=== PATIENT | female | born 1955 | race American Indian/Alaskan Native ===

== ENCOUNTER → 2019-11-24 10:23 | Outpatient (CLI) | payer BC, SELFPAY ==
--- NOTE | ~2019-11-24 | DEXA_ITS ---
Bone Density Report Name: Michelle Sevilla Age: 64 Sex: Female Ethnicity: White Date of : 1955 Indication: postmenopausal; screening for osteoporosis; prior fracture; Referring Provider: KAZ RONQUILLO Study: Bone densitometry was performed. Exam Date: November 24, 2019 Accession number: [id number] Bone Density: Region BMD T-score Z-score Classification AP Spine (L1-L4) 1.095 0.4 2.1 Normal Femoral Neck (Left) 0.779 -0.6 0.8 Normal Total Hip (Left) 0.946 0.0 1.2 Normal Femoral Neck (Right) 0.756 -0.8 0.6 Normal Total Hip (Right) 0.923 -0.2 1.0 Normal Total Hip Mean 0.935 -0.1 1.1 Normal World Health Organization criteria for BMD impression classify patients as: Normal (T-score at or above -1.0), Osteopenia (T-score between -1.0 and -2.5), or Osteoporosis (T-score at or below -2.5). 10-year Fracture Risk: FRAX not reported because: All T-scores for Spine Total, Hip Total, Femoral Neck at or above -1.0 Previous Exams: Region Exam Age BMD T-score BMD Change BMD Change Date g/cm2 vs Baseline vs Previous AP Spine(L1-L4) 11/24/2019 64 1.095 0.4 0.041* 0.041* 03/20/2017 62 1.054 0.1 Total Hip(Left) 11/24/2019 64 0.946 0.0 0.006 0.006 03/20/2017 62 0.939 0.0 Total Hip(Right) 11/24/2019 64 0.923 -0.2 0.000 0.000 03/20/2017 62 0.923 -0.2 *Denotes significance at 95% confidence level, LSC for AP Spine = 0.022 g/cm2, LSC for Total Hip = 0.027 g/cm2 Clinical Information Provided by Patient: Has had a low trauma fracture Has used the following medications: Vitamin D, Calcium Patient maximum height was 65 Menopause Age: 51 Drinks caffeinated beverages Onset of menses at age 15 Number of children 1 Impression: The patient has normal bone mass. The patient has risk factors, including: previous fracture. No significant bone loss was observed. Discussion: BONE DENSITY IS ABOVE THE MINIMUM DESIRABLE LEVEL AT ALL SKELETAL SITES TESTED. This patient?s bone mineral density is above the minimum desirable level (T-score -1.0 or better) at all sites measured. The patient should follow a healthful lifestyle (good nutrition with adequate calcium and vitamin D, and appropriate weight-bearing exercise). Follow-Up: Consider repeating this study in 5 years or sooner if there is some new clinical indication. Reported by: KEVIN on 11/24/2019 10:47:00 AM.
== END ==
PROVIDERS: PCP Nurse Practitioner Family; Visit Provider Obstetrics & Gynecology Gynecology
DX: Z78.0 Asymptomatic menopausal state (principal)
CPT/HCPCS: 77080

== ENCOUNTER 2021-02-06 12:40 | Outpatient (CLI) | payer MEDICARE, BC, SELFPAY ==
--- NOTE | ~2021-02-06 | US_ITS ---
EXAMINATION: US carotid duplex BI DATE: 02/06/2021 13:22 INDICATION: Bilateral carotid artery stenosis TECHNIQUE: Grayscale, color Doppler, and pulsed Doppler images of the cervical carotid arteries were obtained. The degree of vessel stenosis is placed in one of the following categories: normal, <50%, 5 0-69%, >=70% but less than near-occlusion, near-occlusion, or total occlusion. Note that percent sten osis relative to normal distal artery lumen diameter is indirectly measured from velocity measurement s as described by Guzman, et al. Radiology 2003; 229:340-346. COMPARISON: 01/12/2019 FINDINGS: RIGHT: The right common carotid artery (CCA) peak systolic velocity (PSV) is 69 cm/s. The right internal car otid artery (ICA) PSV is 104 cm/s. The right ICA end-diastolic velocity (EDV) is 40 cm/s. The right I CA/CCA PSV ratio is 1.5. Grayscale and color Doppler images yield an estimate of <50% diameter reduct ion from plaque in the ICA. The external carotid artery (ECA) PSV is 75 cm/s. There is antegrade flow in the right vertebral artery. LEFT: The left CCA PSV is 63 cm/s. The left ICA PSV is 90 cm/s. The left ICA EDV is 33 cm/s. The left ICA/C CA PSV ratio is 1.4. Grayscale and color Doppler images yield an estimate of <50% diameter reduction from plaque in the ICA. The ECA PSV is 55 cm/s. There is antegrade flow in the left vertebral artery. IMPRESSION: 1. <50% stenosis in the right internal carotid artery. 2. <50% stenosis in the left internal carotid artery. Reviewed, dictated and finalized at location B.
== END 2021-02-06 12:41 | disposition home or self-care (01) ==
PROVIDERS: PCP Nurse Practitioner Family; Visit Provider Surgery Vascular Surgery
DX: I65.23 Occlusion and stenosis of bilateral carotid arteries (principal)
CPT/HCPCS: 93880

== ENCOUNTER 2021-03-27 15:33 | Emergency (ER) | payer MEDICARE, BC, SELFPAY ==
[2021-03-27] VITALS (16 sets, daily range): BP systolic 130–153; BP diastolic 79–88; PULSE 57–86; RESP 10–19; TEMP 36.3; O2SAT 99–100
--- NOTE | ~2021-03-27 | XR_ITS ---
EXAMINATION: XR chest 2V DATE: 03/27/2021 15:55 INDICATION: Generalized chest pain. TECHNIQUE: Frontal and lateral views of the chest were obtained. COMPARISON: None. FINDINGS: The chest demonstrates clear lungs without pneumonia, pleural effusion, or pneumothorax. Th e heart size is normal. IMPRESSION: 1. No acute cardiopulmonary disease. Reviewed, dictated and finalized at location B. [facility]
--- NOTE | 2021-03-27 15:35 | ECG_ITS ---
Measurements Intervals [place] Rate: 69 P: 76 ME: 137 QRS: 65 QRSD: 86 T: 35 QT: 365 QTc: 393 Interpretive Statements SINUS RHYTHM POSSIBLE LEFT ATRIAL ENLARGEMENT BORDERLINE ST ABNORMALITY- ANTEROLAT/INF LEADS BASELINE ARTIFACT- I, III, AVR, AVL, AVF BORDERLINE ECG Electronically Signed On 03-27-2021 17:05:13 [employer]ING PRESS OPERATOR by Marcio Miramontes D.O.
[2021-03-27 16:08] LABS: Basophils Percent Auto 0.3 % (0.2-1.2); Eosinophils Percent Auto 0.4 % (0-4.4); Hematocrit 45.1 % (37.0-47.0); Hemoglobin 14.8 g/dL (12.0-15.0); Immature Granulocyte Absolute 0.02 K/mm3 (0.00-0.031); Immature Granulocyte Percent A 0.2 % (0-0.5); Lymphocytes Absolute Auto 2.17 K/mm3 (0.9-3.2); Lymphocytes Percent Auto 23.9 % (18.3-44.2); Mean Corpuscular HGB Conc 32.8 g/dl (32-36); Mean Corpuscular Hemoglobin 30.3 pg (26-34); Mean Corpuscular Volume 92.4 fl (80-100); Mean Platelet Volume 9.9 fl (7.4-10.4); Monocytes Absolute Auto 0.6 K/mm3 (0.1-0.6); Monocytes Percent Auto 6.7 % (2.6-8.5); Neutrophils Absolute Auto 6.2 K/mm3 (1.3-6.7); Neutrophils Percent Auto 68.5 % (45.5-73.1); Platelet Count Result 295 k/mm3 (150-375); Red Blood Count 4.88 M/mm3 (4.2-5.4); Red Cell Distribution Width 12.9 % (11.5-14.5); White Blood Count 9.1 K/mm3 (4.5-10.0)
[2021-03-27 16:17] LABS: INR 0.9; Prothrombin Time 12.5 Seconds (11.1-14.7)
[2021-03-27 16:18] LABS: Partial Thromboplastin Time 27.7 SECONDS (22.3-36.8)
--- NOTE | 2021-03-27 16:22 | ED.CHESTPAIN ---
HPI - Chest Pain General Chief Complaint: Chest Pain Stated Complaint: chest pain Time Seen by Provider: 03/27/21 16:07 Source: patient Mode of arrival: ambulatory Limitations: no limitations History of Present Illness HPI narrative: 66-year-old female past medical history of high cholesterol no family history of cardiac disease complaining of epigastric pain radiating to the substernal area after drinking a adrian latte prior to arrival. Pain lasted approximately 30 minutes. Worse with deep breath, improved with burping. No fever, no cough, no shortness of breath, no leg swelling, no new medications. No previous history of same. Related Data Home Medications Medication Instructions Recorded Confirmed citalopram mg 03/27/21 rosuvastatin mg 03/27/21 Allergies Allergy/AdvReac Type Severity Reaction Status Date / Time No Known Allergies Allergy Verified 03/27/21 16:11 Review of Systems Review of Systems: CONSTITUTIONAL: no fever, no weight loss, no confusion EYES: no vision changes, no eye pain ENT: no rhinorrhea, no sore throat, no difficulty swallowing CARDIOVASCULAR: postive for chest pain, no leg edema, no palpitations RESPIRATORY: no cough, no shortness of breath, no hemoptysis GASTROINTESTINAL: no abdominal pain, no nausea, no vomiting, no diarrhea GENITOURINARY: no flank pain, no dysuria, no hematuria SKIN: no rash, no jaundice MUSCULOSKELETAL: no back pain, no trauma. NEUROLOGIC: No headache, no dizziness, no focal weakness PSYCHIATRIC: No hallucinations, no suicidal ideation COUNT INCLUDES THE [facility] Family History Family History Grandparent Diabetes mellitus Family history of malignant neoplasm of bone Mother Hypertension Father Hypertension Other Family history of arthritis Family history of cardiovascular disease Social History Social History Smoking status: Never smoker Alcohol intake: current Exam Narrative: General: alert, afebrile, answering all questions appropriately Head: normocephalic, atraumatic Eyes: EOMI bilaterally, anicteric, no injection ENT: moist mucous membranes, oropharynx patent, no rhinorrhea Neck: supple, trachea midline, no JVD Chest: equal chest rise bilaterally, no chest wall trauma noted Lungs: clear to auscultation bilaterally, respirations unlabored CV: regular rate, no MATTHIEU B, calf size equal bilaterally Abd: soft, non-distended, non-tender, no rebound, no gaurding EXT: no deformity noted, moving all extremities equally Skin: warm, dry, no pallor Neuro: alert, oriented x 3; CN 2-12 grossly intact, no dysarthria Psych: affect appropriate, though content normal Course Course Emergency Course: Patient pain-free in the ED, had epigastric pain on exam chest x-ray normal, EKG normal, troponin negative x2 remained chest pain-free with no history of CAD. Patient has follow-up with primary doctor tomorrow and will return if any concern including chest pain breath leg swelling fever. Patient considered safe for discharge Vital Signs Vital signs: Vital Signs Temperature 36.3 C L 03/27/21 15:38 Pulse Rate 86 03/27/21 15:38 Respiratory Rate 18 03/27/21 15:38 Blood Pressure 153/85 H 03/27/21 15:38 Pulse Oximetry 99 03/27/21 15:38 Temperature 36.3 C L 03/27/21 15:38 Pulse Rate 59 L 03/27/21 19:00 Respiratory Rate 14 03/27/21 19:00 Blood Pressure 140/81 03/27/21 19:00 Pulse Oximetry 100 03/27/21 19:00 MDM - Chest Pain Differential Diagnosis Differential diagnosis: Likely pneumothorax, stable angina, unstable angina pectoris, atypical chest pain, st elevation myocardial infarction, biliary colic and other (Vascular catastrophe, pleural effusion, diverticulitis, gastritis, gas, GERD) Medical Records Data Attestation: I reviewed the patient's medical records. Lab Data Attestation: I reviewed the patient's lab results. Result diagrams:
[2021-03-27] MEDS: NITROGLYCERIN OINTMENT 1 INCH DOSE TRANSDERM (16:28)
[2021-03-27] MEDS: FAMOTIDINE 20 MG/2 ML VIAL IV PUSH (16:28)
--- NOTE | 2021-03-27 16:28 | PC.NURSE ---
#20 gauge IV placed to RAC. Pepcid 20 mg IVP and Nitropaste 1 placed to mid chest. Unable to document at this time due to computer malfunction.
[2021-03-27 16:30] LABS: Alanine Aminotransferase 24 U/L (4-35); Albumin Level 4.8 g/dL (3.5-5.1); Alkaline Phosphatase 65 U/L (38-126); Anion Gap 6 mmol/L (8-16); Aspartate Amino Transferase 36 U/L (14-36); Bilirubin,Total 0.4 mg/dL (0.2-1.3); Blood Urea Nitrogen 16 mg/dL (7-17); Calcium 9.9 mg/dL (8.4-10.2); Carbon Dioxide 30 mmol/L (22-30); Chloride 100 mmol/L (98-107); Estimated CRCL calculation 53 ml/min; Estimated Glomerular Filt Rate > 60; Glucose 130 mg/dL (65-110); Lipase 63 U/L (23-300); Sodium 136 mmol/L (137-145)
--- NOTE | 2021-03-27 16:38 | PC.NURSE ---
Called lab to add on MG
[2021-03-27 16:43] LABS: Troponin I < 0.012 ng/mL (0.000-0.034)
[2021-03-27 16:51] LABS: Magnesium 1.6 mg/dL (1.6-2.3)
--- NOTE | 2021-03-27 18:58 | PC.NURSE ---
Denies any further pain. Wanting to go home.
--- NOTE | 2021-03-27 19:00 | PC.NURSE ---
Assuming care of pt.
[2021-03-27 20:10] LABS: Troponin I < 0.012 ng/mL (0.000-0.034)
== END 2021-03-27 20:47 | disposition home or self-care (01) ==
PROVIDERS: Emergency Medicine; Emergency Provider Emergency Medicine; PCP Nurse Practitioner Family
DX: R07.9 Chest pain, unspecified (principal)
CPT/HCPCS: 36415; 71046; 80053; 83690; 83735; 84484; 85025; 85610; 85730; 93005; 96374; 99284; A9270

== ENCOUNTER 2021-03-29 16:09 | Emergency (ER) | payer MEDICARE, BC, SELFPAY ==
[2021-03-29 16:20] VITALS: BP 137/76; PULSE 73; RESP 16; TEMP 36.6; O2SAT 100
--- NOTE | 2021-03-29 16:23 | ED.FEMALEGU ---
HPI - Female Genitourinary General Chief complaint: Urogenital-Female Stated complaint: UTI Source: patient and RN notes reviewed Mode of arrival: ambulatory History of Present Illness HPI Narrative: This is a 66-year-old female who presented to urgent care with complaints of foul-smelling urine and lower back pain x2 days. Patient notes that she self caths herself and has had a history of UTIs she notes that she did not have any hematuria, frequency urgency, dysuria or incontinence. Patient did notes that she has been exercising for the last couple days and her pain could possibly be due to her exercising. Patient UA was negative for urinary tract infection and her CVA was negative. Related Data Home Medications Medication Instructions Recorded Confirmed citalopram 20 mg PO DAILY 03/27/21 03/29/21 rosuvastatin 10 mg PO DAILY 03/27/21 03/29/21 Allergies Allergy/AdvReac Type Severity Reaction Status Date / Time No Known Allergies Allergy Verified 03/29/21 16:13 Review of Systems Review of Systems: A 14 organ system Review of Systems was performed and pertinent positives included in the HPI, otherwise remaining ROS is negative. [facility] Family History Family History Grandparent Diabetes mellitus Family history of malignant neoplasm of bone Mother Hypertension Father Hypertension Other Family history of arthritis Family history of cardiovascular disease Social History Social History Smoking status: Never smoker Alcohol intake: current Exam Narrative: GENERAL: This is a well-nourished, well-developed patient, in no apparent distress. HEAD: normocephalic, atraumatic. EYES: PERRL. Sclera clear/white. Vision is grossly intact. EARS: External ears normal, auditory canals clear and without drainage, TMs normal without perforation. Hearing grossly intact. NOSE: External nose normal with no obvious nasal discharge, nares without redness, no rhinorrhea. THROAT: Mucous membranes moist, posterior pharynx clear. NECK: Neck supple, non-tender without lymphadenopathy, masses or thyromegaly. CARDIOVASCULAR: Regular rate and rhythm without murmurs, gallops, or rubs. RESPIRATORY: Clear to auscultation. Breath sounds equal bilaterally. No wheezes, rales, or rhonchi. GASTROINTESTINAL: Abdomen soft, non-tender, nondistended. Bowel sounds are active. No hepato-splenomegaly, or palpable masses. No guarding. CVA negative SKIN: warm, intact with no suspicious lesions or rash, good texture and turgor. NEURO: awake, alert, and oriented to person, place and time. There were no obvious focal neurologic abnormalities. Steady gait EXTREMITIES: Normal range of motion. No edema. No calf tenderness. Negative Homans sign bilaterally. BACK: Nontender without deformity or crepitance. No flank tenderness. Course Course Emergency Course: Patient will discharge home and use [id number] medication for pain she will also use heat or ice to relieve her lower back pain. Vital Signs Vital signs: Vital Signs Temperature 97.8 F 03/29/21 16:20 Pulse Rate 73 03/29/21 16:20 Respiratory Rate 16 03/29/21 16:20 Blood Pressure 137/76 03/29/21 16:20 Pulse Oximetry 100 03/29/21 16:20 Temperature 97.8 F 03/29/21 16:20 Pulse Rate 73 03/29/21 16:20 Respiratory Rate 16 03/29/21 16:20 Blood Pressure 137/76 03/29/21 16:20 Pulse Oximetry 100 03/29/21 16:20 MDM - Female Genitourinary Differential Diagnosis Differential diagnosis: Likely urinary tract infection, vaginitis and other (Muscle strain or sprain) Lab Data Labs: Urine Glucose Negative Reference Range: Negative Urine Bilirubin Negative Reference Range: Negative Urine Ketone Negative
== END 2021-03-29 16:40 | disposition home or self-care (01) ==
PROVIDERS: Emergency Provider Nurse Practitioner; PCP Nurse Practitioner Family
DX: T14.8XXA Other injury of unspecified body region, initial encounter (principal); X58.XXXA Exposure to other specified factors, initial encounter
CPT/HCPCS: 81003; 99212; G0463

== ENCOUNTER 2023-02-28 16:33 | Outpatient (CLI) | payer MEDICARE, BC, SELFPAY ==
--- NOTE | ~2023-02-28 | US_ITS ---
EXAMINATION: US carotid duplex BI DATE: 02/28/2023 17:54 INDICATION: Carotid stenosis, bilateral. TECHNIQUE: Grayscale, color Doppler, and pulsed Doppler images of the cervical carotid arteries were obtained. The degree of vessel stenosis is placed in one of the following categories: normal, <50%, 5 0-69%, >=70% but less than near-occlusion, near-occlusion, or total occlusion. Note that percent sten osis relative to normal distal artery lumen diameter is indirectly measured from velocity measurement s as described by Guzman, et al. Radiology 2003; 229:340-346. COMPARISON: Ultrasound 02/06/2021 FINDINGS: RIGHT: The right common carotid artery (CCA) peak systolic velocity (PSV) is 78 cm/s. The right internal car otid artery (ICA) PSV is 80 cm/s. The right ICA end-diastolic velocity (EDV) is 30 cm/s. The right IC A/CCA PSV ratio is 1.0. Grayscale and color Doppler images yield an estimate of <50% diameter reducti on from plaque in the ICA. There is antegrade flow in the right vertebral artery. LEFT: The left CCA PSV is 67 cm/s. The left ICA PSV is 71 cm/s. The left ICA EDV is 26 cm/s. The left ICA/C CA PSV ratio is 1.1. Grayscale and color Doppler images yield an estimate of <50% diameter reduction from plaque in the ICA. There is antegrade flow in the left vertebral artery. IMPRESSION: 1. <50% stenosis in the right internal carotid artery. 2. <50% stenosis in the left internal carotid artery. Reviewed, dictated and finalized at location E.
== END 2023-02-28 16:34 | disposition home or self-care (01) ==
LOC: ANHIMG 16:34
PROVIDERS: PCP Nurse Practitioner; Visit Provider Surgery Vascular Surgery
DX: I65.23 Occlusion and stenosis of bilateral carotid arteries (principal)
CPT/HCPCS: 93880

== ENCOUNTER 2023-10-07 08:20 | Outpatient (CLI) | payer MEDICARE, BC, SELFPAY ==
[2023-10-07 12:51] LABS: Basophils Percent Auto 0.8 % (0.2-1.2); Eosinophils Absolute Auto 0.2 K/mm3 (0-0.3); Eosinophils Percent Auto 2.8 % (0-4.4); Hematocrit 44.6 % (37.0-47.0); Immature Granulocyte Absolute 0.01 K/mm3 (0.00-0.031); Immature Granulocyte Percent A 0.2 % (0-0.5); Lymphocytes Percent Auto 28.4 % (18.3-44.2); Mean Corpuscular HGB Conc 31.4 g/dl (32-36); Mean Corpuscular Hemoglobin 29.9 pg (26-34); Mean Corpuscular Volume 95.3 fl (80-100); Mean Platelet Volume 10.4 fl (7.4-10.4); Monocytes Absolute Auto 0.5 K/mm3 (0.1-0.6); Monocytes Percent Auto 9.7 % (2.6-8.5); Neutrophils Absolute Auto 3.1 K/mm3 (1.3-6.7); Neutrophils Percent Auto 58.1 % (45.5-73.1); Platelet Count Result 275 k/mm3 (150-375); Red Blood Count 4.68 M/mm3 (4.2-5.4); Red Cell Distribution Width 13.3 % (11.5-14.5); White Blood Count 5.3 K/mm3 (4.5-10.0)
[2023-10-07 13:25] LABS: Alanine Aminotransferase 30 U/L (6-35); Alkaline Phosphatase 51 U/L (38-126); Anion Gap 3 mmol/L (4-12); Aspartate Amino Transferase 80 U/L (14-36); Bilirubin,Total 0.6 mg/dL (0.2-1.3); Blood Urea Nitrogen 15 mg/dL (7-17); Calcium 8.8 mg/dL (8.4-10.2); Carbon Dioxide 28 mmol/L (22-30); Chloride 105 mmol/L (98-107); Cholesterol 170 mg/dL (0-200); Estimated Glomerular Filt Rate > 60; Glucose 89 mg/dL (65-110); HDL Direct 76 mg/dL; Potassium 4.6 mmol/L (3.4-5.0); Sodium 136 mmol/L (137-145); Triglycerides 71 mg/dL (<150)
[2023-10-07 13:36] LABS: LDL Cholesterol Direct 71 mg/dL
[2023-10-07 14:05] LABS: Vitamin D 25 Hydroxy 53.4 ng/mL
== END 2023-10-07 08:21 | disposition home or self-care (01) ==
PROVIDERS: PCP Internal Medicine; Visit Provider Nurse Practitioner
DX: E78.2 Mixed hyperlipidemia (principal); E55.9 Vitamin D deficiency, unspecified; Z13.29 Encounter for screening for other suspected endocrine disorder
CPT/HCPCS: 36415; 80053; 80061; 82306; 85025

== ENCOUNTER 2024-02-09 08:45 | Emergency (ER) | payer MEDICARE, BC, SELFPAY ==
[2024-02-09 09:07] VITALS: BP 108/74; PULSE 77; RESP 16; TEMP 36.1; O2SAT 98
--- NOTE | 2024-02-09 09:19 | ED.GENADULT ---
HPI - General Adult General Chief complaint: Upper Respiratory Infection Stated complaint: HEAD CONGESTION/SORE THROAT/COUGH Source: patient Mode of arrival: ambulatory Limitations: no limitations History of Present Illness HPI narrative: Pt presents for evaluation of sick symptoms. Symptoms include sinus congestion, postnasal drainage, sore throat and cough. No fever, chills, nausea, vomiting or diarrhea. No sick contacts prior to the time of symptom onset. However her is now becoming symptomatic. She has been taking cepacol lozenges and tylenol cold and sinus for her symptoms. She does not smoke. Related Data Home Medications Medication Instructions Recorded Confirmed ascorbic acid (vitamin C) 1,000 mg 1 g PO DAILY 12/08/21 02/09/24 capsule calcium carbonate (Calcium 600) 600 mg PO BID 12/08/21 02/09/24 estradiol 0.01% (0.1 mg/gram) 1 g vaginal 2XW 12/08/21 02/09/24 vaginal cream (Estrace) msgvhqvd-wsy-F. coag-B. 1 tablet PO DAILY 12/08/21 02/09/24 subtilis-inulin 1 billion cell-1 gram chew tab (Culturelle Probiotic-Multivit) multivitamin 1 tablet PO DAILY 12/08/21 02/09/24 Allergies Allergy/AdvReac Type Severity Reaction Status Date / Time amoxicillin Allergy Rash Verified 02/09/24 08:59 Review of Systems Review of Systems: CONSTITUTIONAL: Denies fever, chills, or sweats. EYES: Denies visual changes, redness, or discharge. ENT: Reports sinus congestion postnasal drainage, sore throat. Denies otalgia. CARDIOVASCULAR: Denies chest pain, palpitations, or edema. RESPIRATORY: Reports cough. Denies dyspnea. GASTROINTESTINAL: Denies abdominal pain, nausea, vomiting, or diarrhea. GENITOURINARY: Denies dysuria or hematuria. SKIN: Denies rash or itching. MUSCULOSKELETAL: Denies back pain, joint pain, or myalgia. NEUROLOGIC: Denies headache, numbness, dizziness, or weakness. PSYCHIATRIC: Denies anxiety or depression. [facility] Past Medical History Medical History (Updated 02/09/24 @ 09:22 by Trip Vizcarra, ASSISTANT IMPORT MANAGER, BC) Anxiety Dysuria Hyperlipidemia Urinary retention Surgical History Surgical History History of bladder surgery Family History Family History Grandparent Diabetes mellitus Family history of malignant neoplasm of bone Mother Hypertension Cerebrovascular accident Family history of cardiovascular disease Father Hypertension Heart disease Sibling Asthma Sibling Thyroid disorder Other Family history of arthritis Social History Social History Smoking status: Never smoker Alcohol intake: current Drinks per week: 5 Substance use: never Substance use type: does not use Lack of Transportation: No Lack of Food: Never True Current Housing: I Have Housing Concerned About Future Housing: No Difficulty Paying Gas/Electric Bills: No Difficulty Paying for Meds: No Currently Unemployed: No Education: High School Diploma/GED Difficulty w/ Childcare or Family Care: No Living arrangements: with family Additional living arrangements comments: Occupation/Education: retired Gender identity (if verbalized by the patient): Female Sexual Orientation (if Verbalized by the Patient): Straight or Heterosexual Spiritual care concerns: No Agree to blood products: Yes Course Course Emergency Course: This is a 69-year-old female who presented for evaluation of sick symptoms. COVID and influenza were both negative. Exam is consistent with acute viral syndrome. Increase hydration. Xnab-ypq-xttnnbv agents for symptom management. Follow up with primary provider. Go to the ER for worsening symptoms. Patient in agreement with plan of care Level of Care: Express Care Visit Vital Signs Vital signs: Vital Signs Temperature 36.1 C L 02/09/24 09:07 Pulse Rate
[2024-02-09 09:23] LABS: EDCOVIDSCREEN Negative (Negative); EDINFLUASCREEN Negative (Negative); EDINFLUBSCREEN Negative (Negative)
== END 2024-02-09 09:27 | disposition home or self-care (01) ==
PROVIDERS: Emergency Provider Nurse Practitioner; PCP Nurse Practitioner
DX: J06.9 Acute upper respiratory infection, unspecified (principal); Z20.822 Contact with and (suspected) exposure to COVID-19; E78.5 Hyperlipidemia, unspecified
CPT/HCPCS: 87426; 87804; 99213; G0463

== ENCOUNTER 2024-02-10 09:27 | Outpatient (CLI) | payer MEDICARE, BC, SELFPAY ==
--- NOTE | ~2024-02-10 | US_ITS ---
EXAMINATION: US carotid duplex BI DATE: 02/10/2024 10:25 INDICATION: Carotid stenosis, bilateral. TECHNIQUE: Grayscale, color Doppler, and pulsed Doppler images of the cervical carotid arteries were obtained. The degree of vessel stenosis is placed in one of the following categories: normal, <50%, 5 0-69%, >=70% but less than near-occlusion, near-occlusion, or total occlusion. Note that percent sten osis relative to normal distal artery lumen diameter is indirectly measured from velocity measurement s as described by Guzman, et al. Radiology 2003; 229:340-346. COMPARISON: Ultrasound 02/28/2023 FINDINGS: RIGHT: The right common carotid artery (CCA) peak systolic velocity (PSV) is 100 cm/s. The right internal ca rotid artery (ICA) PSV is 136 cm/s. The right ICA end-diastolic velocity (EDV) is 55 cm/s. The right ICA/CCA PSV ratio is 1.4. Grayscale and color Doppler images yield an estimate of <50% diameter reduc tion from plaque in the ICA. There is antegrade flow in the right vertebral artery. LEFT: The left CCA PSV is 94 cm/s. The left ICA PSV is 119 cm/s. The left ICA EDV is 56 cm/s. The left ICA/ CCA PSV ratio is 1.3. Grayscale and color Doppler images yield an estimate of <50% diameter reduction from plaque in the ICA. There is antegrade flow in the left vertebral artery. IMPRESSION: 1. <50% stenosis in the right internal carotid artery. 2. <50% stenosis in the left internal carotid artery. Reviewed, dictated and finalized at location A.
== END 2024-02-10 09:28 | disposition home or self-care (01) ==
PROVIDERS: PCP Nurse Practitioner; Visit Provider Surgery Vascular Surgery
DX: I65.23 Occlusion and stenosis of bilateral carotid arteries (principal)
CPT/HCPCS: 93880

== ENCOUNTER 2024-08-25 11:30 | Outpatient (CLI) | payer MEDICARE, BC, SELFPAY ==
--- NOTE | ~2024-08-25 | DEXA_ITS ---
Bone Density Report Name: SWETHA WOO Age: 69 Sex: Female Ethnicity: White Date of : 1955 Indication: postmenopausal; screening for osteoporosis; parental hip fracture; Referring Provider: Dewey, Sherry Study: Bone densitometry was performed. Exam Date: August 25, 2024 Accession number: [id number] Bone Density: Region BMD T-score Z-score Classification AP Spine(L2, L3, L4) 1.195 1.1 3.1 Normal Femoral Neck (Left) 0.737 -1.0 0.7 Normal Total Hip (Left) 1.019 0.6 2.0 Normal Femoral Neck (Right) 0.779 -0.6 1.1 Normal Total Hip (Right) 1.000 0.5 1.9 Normal Femoral Neck Mean 0.758 -0.8 0.9 Normal Total Hip Mean 1.009 0.5 2.0 Normal World Health Organization criteria for BMD impression classify patients as: Normal (T-score at or above -1.0), Osteopenia (T-score between -1.0 and -2.5), or Osteoporosis (T-score at or below -2.5). 10-year Fracture Risk: FRAX not reported because: All T-scores for Spine Total, Hip Total, Femoral Neck at or above -1.0 Clinical Information Provided by Patient: Parent has had a hip fracture Patient maximum height was 64.5 Menopause Age: 51 Drinks caffeinated beverages Onset of menses at age 14 Number of children 1 Impression: The patient has normal bone mass. The patient has risk factors, including: parental hip fracture. Discussion: BONE DENSITY IS ABOVE THE MINIMUM DESIRABLE LEVEL AT ALL SKELETAL SITES TESTED. This patient?s bone mineral density is above the minimum desirable level (T-score -1.0 or better) at all sites measured. The patient should follow a healthful lifestyle (good nutrition with adequate calcium and vitamin D, and appropriate weight-bearing exercise). Follow-Up: Consider repeating this study in 5 years or sooner if there is some new clinical indication. Reported by: DAVID on 08/25/2024 11:57:00 AM. Reviewed, dictated and finalized at location A.
--- OUTSIDE RECORDS SUMMARY | 2024-08-25 13:29 | XMS_ITS | Referral Summary ---
Author Organization [facility] Address [facility] [place] [address] Care Team Providers Care Medical Numerical Control Operator Name Role Phone No, Physician Primary Care Provider [phone] Encounters Date Type Department Care Team Description 08/17/2024 9:15 AM CDT Office Visit [facility] [address] [place] [address] [address] [place] [address] Kelsey Salinas MD Seborrheic keratosis (Primary Dx); Lentigines; Multiple benign nevi; Angioma of skin; Actinic keratosis from Last 3 Months Allergies Active Allergy Reactions Criticality Noted Date Comments Chlordiazepoxide Rash Medium 01/20/2018 IBS med- rash and very tired Sulfa (Sulfonamide Antibiotics) Unknown 02/07/2021 Medications citalopram (CeleXA) 20 mg tablet Take 20 mg by mouth daily 1 Active calcium carbonate-vitam in D3 (Calcium 600 + D,3,) 1500 mg (600 mg elemental) -200 units per tablet Take 1 tablet by mouth daily 8 Active ascorbic acid (VITAMIN C) 1,000 mg tablet Take 1,000 mg by mouth daily 8 Active estradioL (Estrace) 0.01 % (0.1 mg/gram) vaginal cream INSERT 1 APPLICATORFUL VAGINALLY TWICE WEEKLY UTD 8 Active nitrofurantoin monohydrate (MACROBID) 100 mg capsule Take 100 mg by mouth 2 (two) times a day 1 Active rosuvastatin (CRESTOR) 10 mg tablet Take 10 mg by mouth daily Active Active Problems No known active problems Social History Tobacco Use Types Packs/Day Years Used Date Smoking Tobacco: Never Assessed Comments Unknown Sex and Gender Information Value Date Recorded Sex Assigned at Not on file 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
--- OUTSIDE RECORDS SUMMARY | 2024-08-25 13:29 | XMS_ITS | Clinical Summary ---
Author Organization [facility] Address [address] [place] [address] Care Team Providers Care Audio Director Name Role Phone No, Physician Primary Care Provider [phone] Allergies Active Allergy Reactions Criticality Noted Date [...] Active Active Problems No known active problems Encounters Date Type Department Care Team Description 08/17/2024 9:15 AM CDT Office Visit [facility] [address] [place] [address] [address] [place] [address] Kelsey Salinas MD Seborrheic keratosis (Primary Dx); Lentigines; Multiple benign nevi; Angioma of skin; Actinic keratosis from Last 3 Months Social History Tobacco Use Types Packs/Day Years Used Date Smoking Tobacco: Never Assessed Comments Unknown Sex and Gender Information Value Date Recorded Sex Assigned at Not on file 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 Gender Identity Not on file Sexual Orientation Not on file Obstetrics History Plan of Treatment Health Maintenance Due Date Last Done Comments Colon Cancer Screening-Colonoscopy 1955 Depression Screening 1955 Fall Risk Assessment 1955 Hepatitis C Screening 1955 Osteoporosis Screening-Bone Density Scan 1955 Hepatitis B Screening 02/05/1974 Pneumococcal vaccine 65+ (1 of 1 - PCV) 02/05/2006 Well Visit 65+ 02/05/2021 Breast Cancer Screening-Mammogram 11/24/2024 11/25/2023, 11/25/2023, 11/23/2022, Additional history exists Influenza Vaccine (Season Ended) 2025 02/24/2020, 02/11/2019, 02/03/2019, Additional history exists DTaP/Tdap/Td Vaccine (2 - Td or Tdap) 12/19/2025 12/20/2015 Zoster Vaccine Completed 03/19/2019, 11/26/2018 Insurance MEDICARE [facility] Care Teams Audio Director Relationship Specialty Start Date End Date No, Physician PCP - General 08/20/22
--- OUTSIDE RECORDS SUMMARY | 2024-08-25 13:29 | XMS_ITS | Clinical Summary ---
Author Organization [facility] Address [address] [place] [address] Care Team Providers Care Civil Cad Tech Name Role Phone Cintia Grullon [employer]ION PI[employer] EQUIPMENT SUPERVISOR Primary Care Provider [phone] Encounters Date Type Department Care Team Description 07/22/2024 External Device Data [facility] ABSTRACTION Provider, Abstract 07/11/2024 External Device Data [facility] ABSTRACTION Provider, Abstract 07/10/2024 External Device Data [facility] ABSTRACTION Provider, Abstract 07/08/2024 External Device Data [facility] ABSTRACTION Provider, Abstract 07/07/2024 External Device Data [facility] ABSTRACTION Provider, Abstract 06/23/2024 External Device Data [facility] ABSTRACTION Provider, Abstract 05/27/2024 External Device Data [facility] ABSTRACTION Provider, Abstract from Last 3 Months Social History Tobacco Use Types Packs/Day Years Used Date Smoking Tobacco: Never Assessed Comments Unknown Sex and Gender Information Value Date Recorded Sex Assigned at Not on file Legal Sex Female 11:28 PM CDT Gender Identity Not on file Sexual Orientation Not on file Plan of Treatment Upcoming Encounters Date Type Department Care Team (Late st Contact Info) Description 11/25/2024 10:40 AM CDT Appointment [facility] Breast [facility] [address] [facility] [address] [place] [address] Isi Molina MD [address] [place] [address] Health Maintenance Due Date Last Done Comments DTAP/TDAP/TD VACCINES (1 - Tdap) 02/05/1975 COLORECTAL SCREENING 02/05/2001 Colorectal Cancer Screening 02/05/2001 FIT-DNA Q 3 years 02/05/2001 FIT/FOBT Q 1 year 02/05/2001 Flex Sig/CT Colonography Q 5 years 02/05/2001 PNEUMOCOCCAL VACCINE 50+ YEA RS (1 of 1 - PCV) 02/05/2006 ZOSTER VACCINE (1 of 2) 02/05/2006 OSTEOPOROSIS SCREENING 02/05/2021 INFLUENZA VACCINE (#1) 2023 BREAST CANCER SCREENING 11/24/2024 11/25/19 24, 11/23/2022, 11/20/2021, Additional history exists RSV VACCINE (60+ or ) (1 - 1-dose 75+ series) 02/05/2031 Procedures Procedure Name Priority Date/Time Associated Diagnosis Comments MAMMO 3D KEZIA SCREEN BILAT W OR WO CAD Routine 11/25/2023 12:52 PM CDT Visit for screening mammogram from Last 3 Months or Most Recently Relevant to Health Maintenance Results * MAMMO 3D KEZIA SCREEN BILAT W OR WO CAD (11/25/2023 12:52 PM CDT) Anatomical Region Laterality Modality Breast Bilateral Mammography 11/25/2023 12:5 2 PM CDT Impressions 11/25/2023 1:38 PM CDT FINDINGS/IMPRESSION: No suspicious mass, suspicious microcalcifications, or architectural distortion in either breast is identified. Since the prior study, there has been no significant interval change. The computer aided diagnosis detects no significant abnormality. OVERALL FINAL ASSESSMENT: BI-RADS CATEGORY 1 : Negative RECOMMENDATIONS: Routine screening mammogram in one year. DICTATION LOCATION: [facility] Narrative 11/25/2023 1:38 PM CDT BILATERAL FULL-FIELD DIGITAL SCREENING MAMMOGRAM WITH CAD WITH 3D TOMOSYNTHESIS DATE: 11/25/2023 12:52 PM HISTORY: Routine screening. TECHNIQUE: Full-field digital craniocaudal and mediolateral oblique projections of both breasts were obtained. Low-dose full-field digital breast tomosynthesis examination was performed with 2D and 3D acquisitions. Examination is read in conjunction with computer aided detection. COMPARISON: [id number]. BREAST COMPOSITION: There are scattered areas of fibroglandular density. Procedure Note Tammie Cyr MD - 11/25/2023 BILATERAL FULL-FIELD DIGITAL SCREENING MAMMOGRAM WITH CAD WITH 3D TOMOSYNTHESIS DATE: 11/25/2023 12:52 PM HISTORY: Routine screening. TECHNIQUE: Full-field digital craniocaudal and mediolateral oblique projections of both breasts were obtained. Low-dose full-field digital breast tomosynthesis examination was performed with 2D and 3D acquisitions. Examination is read in conjunction with computer aided detection. COMPARISON: [id number]. BREAST COMPOSITION: There are scattered areas of fibroglandular density. FINDINGS/IMPRESSION: No suspicious mass, suspicious microcalcifications, or architectural distortion in either breast is identified. Since the prior study, there has been no significant interval change. The computer aided diagnosis detects no significant abnormality. OVERALL FINAL ASSESSMENT: BI-RADS CATEGORY 1 : Negative RECOMMENDATIONS: Routine screening mammogram in one year. DICTATION LOCATION: [facility] Isi Molina MD MAMMO ORDERABLES Final Re sult from Last 3 Months or Most Recently Relevant to Health Maintenance Insurance [facility] FEDERAL MEDICARE PART A AND B Care Teams Civil Cad Tech Relationship Specialty Start Date End Date Cintia Grullon FNP [address] [phone] PCP - General Nurse Practitioner Family 11/16/19
--- OUTSIDE RECORDS SUMMARY | 2024-08-25 13:29 | XMS_ITS | Data Portability ---
Author Organization [facility] [employer], [facility], [facility] Address [address] [place] [address] Care Team Providers Care Aquaculturist Name Role Phone SANDRA HASKINS Primary Care Provider [phone] SANDRA HASKINS Referring Provider Assessment No assessment recorded. Plan of Treatment Reminders Order Date Submit Date Provider Last Modified By Organization Details Last Modified Time Details Appointments ESTABLISH ED OV 15 2025 11:30A M DR SANDRA HASKINS Not available Not available Not available Lab urinalysi s, dipstick 2024 025 [email or web address] In-Office Order, Internal Use Only DO Not Attach Compendium DO Not Attach Compendium, Do Not Delete/merge, [id number] 05/19/2024 12:02:53 hepatitis C Ab, serum 2024 025 WEN[facility], [address], [place], [address], 05/19/2024 16:53:22 venipunct ure 2024 025 [email or web address] [facility], [address], [place], [address], 05/19/2024 14:05:58 lipid panel, serum 2024 025 [facility], [address], [place], [address], 05/19/2024 16:14:22 CMP, serum or plasma 2024 025 [facility], [address], [place], [address], 05/19/2024 16:14:20 CK (creatine kinase), total, serum 2024 025 [facility], [address], [place], [address], 05/19/2024 16:14:08 CBC 2024 025 [facility], [address], [place], [address], 05/19/2024 15:05:45 T4, free, serum 2024 025 [facility], [address], [place], [address], 05/19/2024 16:53:19 TSH, serum or plasma 2024 025 [facility], [address], [place], [address], 05/19/2024 16:53:25 vitamin D, 25-hydrox y, total, serum 2024 025 [facility], [address], [place], [address], 05/19/2024 16:53:28 Referral None recorded. Procedures None recorded. Surgeries None recorded. Imaging None recorded. Medication Orders None recorded. Patient TargetsNo targets recorded. Patient Instructions Encounter Date Encounter Id Patient Instructions Last Modified By Organization Details Last Modified Time 05/19/2024 [id number] gastroesophageal reflux disease (GERD): care instructions [email or web address] Not available 05/19/2024 14:05:58 Reason for Referral None Reported. Results Created Date Observation Date Name Description Value Unit Range Abnormal Flag Note LastModifiedBy Organization Detail LastModifiedTime 05/19/19 25 05/19/2024 CBC W/ AUTOD IFF, COMPL ETE BLOOD COUNT WBC 6.4 K/uL 3.6 - 10.0 Not Available [facility] [address], [place], [address], 05/19/2024 15:05:45 05/19/19 25 05/19/2024 CBC W/ AUTOD IFF, COMPL ETE BLOOD COUNT RBC 4.9 M/uL 3.9 - 5.0 Not Available [facility] [address], [place], [address], 05/19/2024 15:05:45 05/19/19 25 05/19/2024 CBC W/ AUTOD IFF, COMPL ETE BLOOD COUNT hemoglobin 14.8 g/dL 12.0 - 15.0 Not Available [facility], [place], [address], 05/19/2024 15:05:45 05/19/19 25 05/19/2024 CBC W/ AUTOD IFF, COMPL ETE BLOOD COUNT hematocrit 45.2 % 35.0 - 45.0 high Not Available [facility] [address] [place], [place] [address]y [address], [place], [address], 05/19/2024 15:05:45 05/19/19 25 05/19/2024 CBC W/ AUTOD IFF, COMPL ETE BLOOD COUNT MCV 92.1 fL 80.0 - 99.0 Not Available [facility] [address], [place], [address], 05/19/2024 15:05:45 05/19/19 25 05/19/2024 CBC W/ AUTOD IFF, COMPL ETE BLOOD COUNT MCH 30.2 pg 27.0 - 33.0 Not Available [facility] [address], [place], [address], 05/19/2024 15:05:45 05/19/19 25 05/19/2024 CBC W/ AUTOD IFF, COMPL ETE BLOOD COUNT MCHC 32.8 g/dL 32.0 - 36.0 Not Available [facility] [address], [place], [address], 05/19/2024 15:05:45 05/19/19 25 05/19/2024 CBC W/ AUTOD IFF, COMPL ETE BLOOD COUNT RDW 13.5 % 11.0 - 15.0 Not Available [facility] [address], [place], [address], 05/19/2024 15:05:45 05/19/19 25 05/19/2024 CBC W/ AUTOD IFF, COMPL ETE BLOOD COUNT nucleated RBC 0 % 0 - 2 Not Available [facility] [address], [place], [address], 05/19/2024 15:05:45 05/19/19 25 05/19/2024 CBC W/ AUTOD IFF, COMPL ETE BLOOD COUNT platelet 297 K/uL 140 - 440 Not Available [facility] [address], [place], [address], 05/19/2024 15:05:45 05/19/19 25 05/19/2024 CBC W/ AUTOD IFF, COMPL ETE BLOOD COUNT MPV 8.1 fL 7.4 - 10.4 Not Available [facility] [address], [place], [address], 05/19/2024 15:05:45 05/19/19 25 05/19/2024 CBC W/ AUTOD IFF, COMPL ETE BLOOD COUNT neutrophil, percentage 58.5 % Not Available [facility] [address], [place], [address], 05/19/2024 15:05:45 05/19/1905/19/2024 CBC W/ AUTOD IFF, COMPL ETE BLOOD COUNT lymphocyte, percentage 30.1 % Not Available [facility] [address] [place], [place] [address]y [address], [place], [address], 05/19/2024 15:05:45 05/19/19 25 05/19/2024 CBC W/ AUTOD IFF, COMPL ETE BLOOD COUNT monocyte, percentage 9.6 % Not Available [facility] [address] [place], [place] [address], [place], [address], 05/19/2024 15:05:45 05/19/19 25 05/19/2024 CBC W/ AUTOD IFF, COMPL ETE BLOOD COUNT eosinophil, percentage 1.2 % Not Available [facility] [address] [place], [place] [address], [place], [address], 05/19/2024 15:05:45 05/19/1905/19/2024 CBC W/ AUTOD IFF, COMPL ETE BLOOD COUNT basophil, percentage 0.6 % Not Available [facility] [address] [place] [address] [address], [place], [address], 05/19/2024 15:05:45 05/19/19 25 05/19/2024 CBC W/ AUTOD IFF, COMPL ETE BLOOD COUNT neutrophil, absolute 3.7 K/uL 1.5 - 7.5 Not Available [facility] [address] [place], [place] [address], [place], [address], 05/19/2024 15:05:45 05/19/19 25 05/19/2024 CBC W/ AUTOD IFF, COMPL ETE BLOOD COUNT lymphocyte, absolute 1.9 K/uL 0.8 - 4.0 Not Available [facility] [address] [place], [place] [address], [place], [address], 05/19/2024 15:05:45 05/19/19 25 05/19/2024 CBC W/ AUTOD IFF, COMPL ETE BLOOD COUNT monocyte, absolute 0.6 K/uL 0.1 - 1.0 Not Available [facility] [address], [place], [address], 05/19/2024 15:05:45 05/19/19 25 05/19/2024 CBC W/ AUTOD IFF, COMPL ETE BLOOD COUNT eosinophil, absolute 0.1 K/uL 0.1 - 1.0 Not Available [facility], [place], [address], 05/19/2024 15:05:45 05/19/19 25 05/19/2024 CBC W/ AUTOD IFF, COMPL ETE BLOOD COUNT basophil, absolute 0.0 K/uL 0.0 - 0.2 Not Available [facility] [address] [facility] [address], [place], [address], 05/19/2024 15:05:45 05/19/19 25 05/19/2024 CK creatine kinase 89 U/L 30 - 223 Not Available [facility] [address], [place], [address], 05/19/2024 16:14:08 05/19/19 25 05/19/2024 CMP, COMPR EHENS GERALD METAB OLIC PANEL glucose 88 mg/dL 70 - 100 Not Available [facility] [address], [place], [address], 05/19/2024 16:14:20 05/19/19 25 05/19/2024 CMP, COMPR EHENS GERALD METAB OLIC PANEL BUN 16 mg/dL 7 - 25 Not Available [facility], [place], [address], 05/19/2024 16:14:20 05/19/19 25 05/19/2024 CMP, COMPR EHENS GERALD METAB OLIC PANEL creatinine 0.8 mg/dL 0.6 - 1.3 Not Available [facility] [address], [place], [address], 05/19/2024 16:14:20 05/19/19 25 05/19/2024 CMP, COMPR EHENS GERALD METAB OLIC PANEL BUN/creatini ne ratio 20 calc 10 - 25 Not Available [facility] [address], [place], [address], 05/19/2024 16:14:20 05/19/19 25 05/19/2024 CMP, COMPR EHENS GERALD METAB OLIC PANEL GFR 81 mL/mi n/1.7 3m^2 >60 GFR < 60 mL/mi n for 3 or more month s may be indic ative of Ruthie Woodall se. The GFR is based on the CKD-E PI 2020 equat ion. To calcu late the new GFR from a previ ous Creat inine resul t go to: https ://margie w.rolly callahan.o rg/pr santiago cunningham s/kdo qi/gf r&5Fc alcul ator. Not Available [facility] [address] [place], [address], 05/19/2024 16:14:20 05/19/19 25 05/19/2024 CMP, COMPR EHENS GERALD METAB OLIC PANEL sodium 139 mmol/ L 135 - 145 Not Available [facility] [address], [place], [address], 05/19/2024 16:14:20 05/19/19 25 05/19/2024 CMP, COMPR EHENS GERALD METAB OLIC PANEL potassium 4.8 mmol/ L 3.5 - 5.5 Not Available [facility] [address], [place], [address], 05/19/2024 16:14:20 05/19/19 25 05/19/2024 CMP, COMPR EHENS GERALD METAB OLIC PANEL chloride 101 mmol/ L 100 - 115 Not Available [facility] [address], [place], [address], 05/19/2024 16:14:20 05/19/19 25 05/19/2024 CMP, COMPR EHENS GERALD METAB OLIC PANEL CO2 31 mmol/ L 21 - 33 Not Available [facility] [address], [place], [address], 05/19/2024 16:14:20 05/19/19 25 05/19/2024 CMP, COMPR EHENS GERALD METAB OLIC PANEL calcium 10.1 mg/dL 8.8 - 10.6 Not Available [facility] [address], [place], [address], 05/19/2024 16:14:20 05/19/19 25 05/19/2024 CMP, COMPR EHENS GERALD METAB OLIC PANEL total protein 7.5 g/dL 6.2 - 8.6 Not Available [facility] [address], [place], [address], 05/19/2024 16:14:20 05/19/19 25 05/19/2024 CMP, COMPR EHENS GERALD METAB OLIC PANEL globulin 3.3 g/dL 1.3 - 4.0 Not Available [facility] [address], [place], [address], 05/19/2024 16:14:20 05/19/19 25 05/19/2024 CMP, COMPR EHENS GERALD METAB OLIC PANEL albumin 4.3 g/dL 3.5 - 5.7 Not Available [facility] [address] [facility] [address], [place], [address], 05/19/2024 16:14:20 05/19/19 25 05/19/2024 CMP, COMPR EHENS GERALD METAB OLIC PANEL A/G ratio 1.3 calc 1.0 - 2.8 Not Available [facility] [address] [facility] [address], [place], [address], 05/19/2024 16:14:20 05/19/19 25 05/19/2024 CMP, COMPR EHENS GERALD METAB OLIC PANEL AST (SGOT) 22 U/L 13 - 39 Not Available [facility] [address] [facility] [address], [place], [address], 05/19/2024 16:14:20 05/19/19 25 05/19/2024 CMP, COMPR EHENS GERALD METAB OLIC PANEL ALT (SGPT) 17 U/L 7 - 52 Not Available [facility] [address] [facility] [address], [place], [address], 05/19/2024 16:14:20 05/19/19 25 05/19/2024 CMP, COMPR EHENS GERALD METAB OLIC PANEL alkaline phosphatase 52 U/L 20 - 128 Not Available [facility] [address], [address], 05/19/2024 16:14:20 05/19/19 25 05/19/2024 CMP, COMPR EHENS GERALD METAB OLIC PANEL total bilirubin 0.6 mg/dL 0.3 - 1.0 Not Available [facility] [address] [facility] [address], [place], [address], 05/19/2024 16:14:20 05/19/19 25 05/19/2024 LIPID PANEL REF DLDL cholesterol 186 mg/dL <200 Expec laura resul ts for Adult s: Total Mary stero l: Risk class ifica tion < 200 mg/dL Deloris able 200-2 39 mg/dL Borde rline high >240 mg/dL High Not Available [facility] [address] [facility] [address] [facility], [place], [address], 05/19/2024 16:14:22 05/19/19 25 05/19/2024 LIPID PANEL REF DLDL triglyceride 85 mg/dL 30 - 150 Not Available [facility] [address], [address], 05/19/2024 16:14:22 05/19/19 25 05/19/2024 LIPID PANEL REF DLDL HDL cholestrol 84 mg/dL >50 Not Available [facility] [address], [address], 05/19/2024 16:14:22 05/19/19 25 05/19/2024 LIPID PANEL REF DLDL LDL calculated 85 mg/dL 0 - 99 Not Available [facility] [address], [address], 05/19/2024 16:14:22 05/19/19 25 05/19/2024 LIPID PANEL REF DLDL chol/HDL risk ratio 2 calc < 5.0 Optim al Not Available [facility] [address], [address], 05/19/2024 16:14:22 05/19/19 25 05/19/2024 LIPID PANEL REF DLDL non-HDL cholesterol 102 mg/dL <130 Deloris able < 130 mg/dL Not Available [facility] [address], [address], 05/19/2024 16:14:22 05/19/19 25 05/19/2024 T4, FREE free T4 1.180 NG/dL 0.930 - 1.770 Not Available [facility] [address] [facility] [address] [place], [address], 05/19/2024 16:53:19 05/19/19 25 05/19/2024 HEPAT ITIS C AB W/ REFLE X TO HCVRN A QN, PCR hepatitis C Ab w/refl to hcvrna, qn, PCR NON-RE ACTIVE non-re active Inter preti ve comme nt: <0.90 Non React gerald = no antib odies to HCV were detec laura. 0.90 to 0.99 Equiv ocal = undet ermin ed resul t, pleas e retes t. >=1.0 0 React gerald = antib odies to HCV detec laura. Sampl e will be sent to refer ence lab for confi rmato ry testi ng by PCR. Not Available [facility] [address] [facility] [address] [place], [address], 05/19/2024 16:53:22 05/19/19 25 05/19/2024 TSH, THYRO ID STIMU LATIN G HORMO NE TSH 1.8100 uIU/m L 0.2700 - 4.2000 Not Available [facility] [address] [facility] [address] [place], [address], 05/19/2024 16:53:25 05/19/19 25 05/19/2024 VITAM IN D, 25-HY DROXY vitamin D, 25 hydroxy 46.30 NG/mL >=30.0 0 The [place] Ruthie wahl Found ation consi ders level s < 30 ng/mL to be insuf ficie nt or defic ient. Not Available [facility] [address] [facility] [address] [place], [address], 05/19/2024 16:53:28 05/19/19 25 05/19/2024 VENIP UNCTU RE results Compl ete Not Available [facility] [address] [facility] [address] [place], [address], 05/19/2024 12:15:49 05/19/1905/19/2024 urina lysis , dipst ick leukocytes neg negati ve Not Available In-Office Order Internal Use Only DO Not Attach Compendium DO Not Attach Compendium, Do Not Delete/merge, 05/19/2024 11:14:49 05/19/1905/19/2024 urina lysis , dipst ick nitrite neg negati ve Not Available In-Office Order Internal Use Only DO Not Attach Compendium DO Not Attach Compendium, Do Not Delete/merge, 05/19/2024 11:14:49 05/19/1905/19/2024 urina lysis , dipst ick urobilinogen norm E.U./ dL 0.2 Not Available In-Office Order Internal Use Only DO Not Attach Compendium DO Not Attach Compendium, Do Not Delete/merge, 05/19/2024 11:14:49 05/19/1905/19/2024 urina lysis , dipst ick protein neg mg/dL negati ve Not Available In-Office Order Internal Use Only DO Not Attach Compendium DO Not Attach Compendium, Do Not Delete/merge, 05/19/2024 11:14:49 05/19/19 25 05/19/2024 urina lysis , dipst ick pH 7 5.0-7. 0 Not Available In-Office Order Internal Use Only DO Not Attach Compendium DO Not Attach Compendium, Do Not Delete/merge, 05/19/2024 11:14:49 05/19/1905/19/2024 urina lysis , dipst ick blood neg negati ve Not Available In-Office Order Internal Use Only DO Not Attach Compendium DO Not Attach Compendium, Do Not Delete/merge, 05/19/2024 11:14:49 05/19/19 25 05/19/2024 urina lysis , dipst ick specific gravity 1.005 1.020- 1.035 Not Available In-Office Order Internal Use Only DO Not Attach Compendium DO Not Attach Compendium, Do Not Delete/merge, [id number] 05/19/2024 11:14:49 05/19/19 25 05/19/2024 urina lysis , dipst ick ketone neg mg/dL negati ve Not Available In-Office Order Internal Use Only DO Not Attach Compendium DO Not Attach Compendium, Do Not Delete/merge, [id number] 05/19/2024 11:14:49 05/19/19 25 05/19/2024 urina lysis , dipst ick bilirubin neg negati ve Not Available In-Office Order Internal Use Only DO Not Attach Compendium DO Not Attach Compendium, Do Not Delete/merge, [id number] 05/19/2024 11:14:49 05/19/19 25 05/19/2024 urina lysis , dipst ick glucose neg mg/dL negati ve Not Available In-Office Order Internal Use Only DO Not Attach Compendium DO Not Attach Compendium, Do Not Delete/merge, [id number] 05/19/2024 11:14:49 Result Notes None recorded. Problems Name Problem SNOMED Code Status Onset Date Resolution Date Notes Provider Name and Address Organization Details Recorded Time Gastroesophage al reflux disease 757563447 Active 2024 Sandra Divine, DO [address], [place], [address], [facility], [facility] 11:58:28 Anxiety 77349170 Active 2024 Sandra Divine, DO [address], [place], [address], [facility], [facility] 11:59:13 Atrophic vaginitis 20934684 Active 2024 Sandra Divine, DO [address], [place], [address], [facility], [facility] 11:59:41 Mixed hyperlipidemia 619905789 Active 2024 Sandra Divine, DO [address], [place], [address], [facility], [facility] 5 12:01:12 Carotid artery stenosis 36537114 Active 2024 Sandra Divine, DO [address], [place], [address], [facility] 5 12:00:57 Dysuria 42659437 Active 2024 Leggett Rolon [facility] 5 12:04:53 Taught self-catheteri zation 678401620 Active 2024 Janet Rolon [facility] 5 12:05:00 Hyperlipidemia 43640851 [facility]24 [facility] 5 12:05:01 Problem Notes None recorded. Procedures Surgical History Date Name Laterality Status Provider Name and Address Organization Details Recorded Time 4 Date of Last Mammogram completed Lola Bowman [facility] 05/19/2024 10:41:21 3 Colonoscopy completed Sandra Haskins, DO [address], [place], [address], [facility] 05/19/2024 12:03:24 Imaging Results None recorded. Procedure Notes None recorded. Medical Equipment None Reported. Allergies No known drug allergies Medications Name Sig Start Date Stop Date Status Note LastModified by Organization Details LastModified Time benzonata te 200 mg capsule TAKE 1 CAPSULE BY MOUTH THREE TIMES DAILY NEEDED FOR COUGH 05/19 completed Pt states no longer taking medicati on 05/19/24 LRP Not Available Not Available Not Available cephalexi n 250 mg capsule TAKE 1 CAPSULE BY MOUTH DAILY AT BEDTIME 05/19 completed Pt states no longer taking medicati on 05/19/24 LRP Not Available Not Available Not Available citalopra m 20 mg tablet TAKE 1 TABLET BY MOUTH DAILY active Not Available Not Available No t Available estradiol 0.01% (0.1 mg/gram) vaginal cream INSERT 1 GRAM VAGINALL Y TWICE A WEEK active Not Available Not Available No t Available cefdinir 300 mg capsule TAKE 1 CAPSULE BY MOUTH TWICE DAILY FOR SYMPTOMS OR UTI. CALL IF SYMPTOMS PERSIST active PRN UTI/PT SELF CATHS Not Available Not Available Not Available rosuvasta tin 10 mg tablet TAKE 1 TABLET BY MOUTH DAILY active Not Available Not Available No t Available Vitals Date Recorded Body weight Body mass index (BMI) Body height Pain severity - 0-10 verbal numeric rating [Score] - Reported Body temperature Respiratory rate Heart rate Oxygen saturation Oxygen saturation in Arterial blood by Pulse oximetry Systolic blood pressure Diastolic blood pressure Provider Name and Address Organization Details Last Updated DateTime 5 93518.0 4 g 26.1 kg/m2 162.56 cm 0 97.1 [degF] 17 /min 65 /min 97 % 97 % 126 mm[Hg] 78 mm[Hg] Lola Bowman [facility] 10:54:46 Social History Question Answer Notes LastModified by Organization Details LastModified Time Tobacco Smoking Status Never Smoker Lola Bowman [facility] 05/19/2024 10:41:35 Do You Have An Advance Directive? Yes Information not available 05/19/2024 Is Your Home Air Conditioned? Yes Information not available 05/19/2024 What Is Your Level Of Alcohol Consumption? Moderate Information not available 05/19/2024 Do You Wear A Helmet When Biking? Yes Information not available 05/19/2024 Is Blood Transfusion Acceptable In An Emergency? Yes Information not available 05/19/2024 What Is Your Code Status? Other Does Not Want To Be On Respirator Information not available 05/19/2024 Are You Currently Employed? No Information not available 05/19/2024 What Type Of Diet Are You Following? REGULAR Information not available 05/19/2024 What Is The Highest Grade Or Level Of School You Have Completed Or The Highest Degree You Have Received? [id number] Information not available 05/19/2024 Have You Been Exposed To Chemicals Or Toxins? No Information not available 05/19/2024 Have There Been Any Changes To Your Family Or Social Situation? No Information not available 05/19/2024 Are There Any Guns Present In Your Home? No Information not available 05/19/2024 Which Of Your Hands Is Dominant? Left Information not available 05/19/2024 [facility] 05/19/2024 Do You Have A Medical Power Of Qualitative Field Coordinator? Yes Information not available 05/19/2024 What Is Your Relationship Status? Information not available 05/19/2024 Are You Sexually Active? Yes Information not available 05/19/2024 Do You Have Smoke And Carbon Monoxide Detectors In Your Home? Yes Information not available 05/19/2024 Are You Passively Exposed To Smoke? No Information not available 05/19/2024 Do You Or Have You Ever Used Smokeless Tobacco? Never Used Smokeless Tobacco Information not available 05/19/2024 Are There Any Smokers In Your House? No Information not available 05/19/2024 Do You Use Any Illicit Or Recreational Drugs? No Information not available 05/19/2024 Do You Have Any Dietary Restrictions? No Information not available 05/19/2024 Sex: Female Functional Status Question Answer Note LastModified by Organization D etails LastModified Time Are you able to care for yourself? Yes Information not available 05/19/2024 What is your exercise level? Moderate Information not available 05/19/2024 Mental Status None recorded. Family History Relationship Description Onset Age of this Age Resolved Age Notes LastModified by Organization Details LastModified Time Mother History of dementia [email or web address] Not available 2024 10:41:16 Father Heart disease [email or web address] Not available 2024 10:41:16 Medical History Condition Response Anxiety/Stress Y Urinary Problems Y Gynecological History Statement/Question Response Menses Monthly N STIs/STDs N If Post Menopausal, Age at Menopause 46 Date of Last Mammogram 11/18/2023 Age at First Child 23 Obstetrics History GPAL:G 1 P 1 0 0 1 Type Value Full Term 1 Living 1 Total 1 Immunizations Vaccine Type Date Status Note Provider Nam e and Address Organization Details Recorded Time influenza, unspecified formulation 4 completed MARY Li - [facility], [facility] 05/19/2024 10:55:48 SARS-COV-2 (COVID-19) vaccine, UNSPECIFIED 4 completed Lola Postbartolome [facility], [facility], [facility] 05/19/2024 10:56:11 pneumococcal polysaccharide PPV23 2 completed Lola Postbartolome null, [facility] 05/19/2024 10:57:40 Pneumococcal conjugate PCV20, polysaccharide [id number] conjugate, adjuvant, PF 2 completed Lola Postbartolome [facility] 05/19/2024 10:58:06 tetanus toxoid, unspecified formulation 6 completed Lola Postbartolome [facility] 05/19/2024 10:58:30 Past Encounters Encounter ID Performer Location Encounter Start Date Encounter Closed Date Diagnosis/Indication Diagnosis SNOMED-CT Code Diagnosis ICD10 Code Diagnosis Note [id number] Sandra Haskins DO [place] [facility] [address] [place] [address] 05/19/2024 10:33:28 05/28/2024 15:49:50 Dysuria [id number] R30.0 {{Acute* N ew New undiagnose d}} {{self-brock ited* unco mpliated u ndiagnosed with uncertain prognosis with systemic symptoms c omplicated life threatenin g}} {{complain t conditio n disease finding il lness inju ry problem * symptom sign othe r matter}}. Prescripti on drug management : {{Add meds to current as noted below Begi n meds as noted below Arias ge medication s as noted below Cont inue medication s as in med list Decre ase meds as noted Disc ontinue meds as noted Incr ease meds as noted No meds given at this time* No meds given until results back No rx indicated OTC meds only Pt refuses rx Restart meds as noted in prescripti on below}}. Reassuranc e given and comfort measures given. Pt informed to seek immediate medical attention should symptoms worsen.UA DIP NEGATIVE.. .REC D-MANNOSE/ HANDOUT GIVEN TO PT Gastroesop hageal reflux disease [id number] K21.9 CHRONIC, STABLE, REC LIMIT CAFFIENE, SPICY FOODS, DON'T EAT AT LEAST 2 HOURS PRIOR TO BEDTIME Carotid ar sanford stenosis [id number] I65.29 CHRONIC, STABLE, FOLLOWS WITH [facility], CONTINUE CRESTOR 10MG QD Atrophic vaginitis 40480 [id number] N95.2 CHRONIC, STABLE, CONTINUE ESTRADIOL VAG CREAM Taught self-catheterization [id number] Z76.89 CHRONIC, STABLE, COMPLETE UROLOGY [facility] Hyperlipidemia 28465352 E78.2 CHRONIC, LABS DUE TODAYADD MORE FIBER IN DIET OR FIBER SUPPAVOID RED MEATS, MORE PLANT BASED DIET Fatigue [id number] R53.83 ACUTE, STABLE, TFTS WITH [facility]AYS LABS Hepatitis C screening 41 [id number] Z11.59 LABS TODAY Health Concerns Section Related Observation LastModified by Organization Detai ls LastModified Time None Recorded Concern Status LastModified by Organization Details LastModified Time None Recorded Advance Directives Directive Y: Payers Encounter Date Sequence Insurance Name Policy Number Policy Ortiz Covered Member ID Ortiz Member ID Guarantor Name 05/19/2024 1 [place]ARE[place] Michelle Connolly [id number] Michelle Sevilla 05/19/2024 2 [place] FEDERAL EMPLOYEE PROGRAM (PPO) 111 Michelle Connolly [id number] Michelle Sevilla Notes Date Note Type Note Provider Name and Address Organization Details Recorded Time 05/19/2024 text/html Establishing Car e for Chronic ConditionsReported bypatient.Reason for visit:establishing care Diagnosis:Dyslipidemia (CRESTOR 10MG QD); GERD Current status:unknown control Current symptoms/concerns:none statedGU complaintReported bypatient.Reason for visit:continued care of chronic complaint Genitourinary complaint:URINARY HESITANCY... Quality:urine odor; SELF CATHS 5 X DAILY/FOLLOWS WITH UROLOGY IN [place] QUALITY MEASURE QUESTIONNAIRE Are you a diabetic patient No Has the Patient previously received any type of colorectal cancer screener No Mammogram Results Negative Has the Patient had a fracture in the last year No Has the Patient had a bone density testing performed before Yes Has the Patient been diagnosed as having osteoporosis No Imported from [employer] on 05/19/2024 Sandra Haskins DO [address], [place], [address], [facility] - [facility], [facility] 07/19/2024 19:43:05 OBGyn Episode No OBEpisode recorded.
--- OUTSIDE RECORDS SUMMARY | 2024-08-25 13:29 | XMS_ITS | Continuity of Care Document ---
Author Organization [facility] Address [address], [address] [place] [address] Phone Care Team Providers Care Logistics Team Lead Name Role Phone Unavailable Unavailable Unavailable Allergies, Adverse Reactions, Alerts Substance Reaction Status Criticality CIPROFLOXACIN HCL Active No Informa tion ciprofloxacin rash Active No Information Medications Medication Instructions Dosage Effective Dates (start - stop) Status Comments Estrace 0.01% (0.1 mg/g) Vaginal Cream insert (1G) by vaginal route every week 1 G - Active Advance Directives Directive Yes / No Effective Date File Name No Information Encounters Encounter Description Practice Location Reason(s) For Visit Diagnoses Date Provider [facility], [address], [address] [place], [id number], [place] tel:[phone] [place] [address] No Information No Information [facility], [address], [address] [place], [id number], [place] tel:[phone] [place] [address] No Information Amanda Engle. [address], [address], [place], [id number], [place]. tel:[phone] [facility], [address], [facility] [address] [place], [id number], [place] tel:[phone] [place] [address] annual visit (chief complaint) Gynecological Examination Amanda Engle. [address], [address], [place], [place], [id number], [place]. tel:[phone] [facility], [address], [address], [place], [id number], [place] tel:[phone] [place] [address] Gynecological Examination Amanda Engle. [address], [address], [place], [place], [id number], [place]. tel:[phone] Family History Family Member Type Diagnosis Age At Onset Maternal grandfather Problem (finding) malignant neopl asm of lung Father Problem (finding) Alive and well Paternal grandfather Problem (finding) coronary arteri osclerosis Mother Problem (finding) raised blood lipids Maternal grandmother Problem (finding) bone ca Paternal grandmother Problem (finding) Diabetes mellit Payers Payer name Insurance type Covered republican ID Authoriza tiphu(s) [facility] [id number] Social History Type Description Quantity Date Captured Comments Sex Female Smoking Status No Information Chief Complaint And Reason For Visit No Information Plan Of Treatment Date Type Action Status Goal H&P. Due on due Goal TD Vaccine. Due on 12 due Goal Lipid Panel. Due on 011 due Goal Mammogram. Due on 1 due Goal Breast exam. Due on 011 due Goal PAP. Due on due Goal Influenza Vaccine. Due on due Goal PROCESSING INSPECTOR exam. Due on due History Of Present Illness Encounter Date Complaint History Of Prese nt Illness No Information Instructions Date Instruction Additional Infor mation No Information Assessments Type Assessment Date No Information
--- OUTSIDE RECORDS SUMMARY | 2024-08-25 13:29 | XMS_ITS | Clinical Summary ---
Author Organization [facility] Address [facility] [place] [address] Care Team Providers Care Manufacturing Technician Name Role Phone Cintia Grullon [facility] Primary Care Provider + Allergies Active Allergy Reactions Criticality Noted Date Comments Chlordiazepoxide Rash Low 01/20/2018 IBS med- rash and very tired Ciprofloxacin Rash Low 01/20/2018 Medications ESTRACE VAGINAL 0.1 MG/GM vaginal cream INSERT 1 APPLICATORFUL VAGINALLY TWICE WEEKLY UTD 2 8 Active citalopram 10 MG tablet Take 1 tablet (10 mg total) by mouth daily. 60 tablet 8 Active Multiple Vitamins-[place] als (CENTRUM SILVER) Tab Take 1 tablet by mouth daily. 30 tablet 8 Active Calcium 600-200 MG-UNIT Tab Take 1 tablet by mouth daily. 30 tablet 8 Active vitamin C 1000 MG tablet Take 1 tablet (1,000 mg total) by mouth daily. 30 tablet 8 Active rosuvastatin (CRESTOR) 10 MG tablet 1 tablet (10 mg total). Active Active Problems Problem Noted Date Diagnosed Date Carotid stenosis, asymptomatic, left 01/30/2018 Hypercholesterolemia 01/30/2018 Family History Medical History Relation Comments diverticulosis Father pacemaker Father Heart Disease Mother Hypertension Mother Relation Status Comments Father Alive Mother Alive Social History Tobacco Use Types Packs/Day Years Used Date Smoking Tobacco: Never Smokeless Tobacco: Never Alcohol Use Standard Drinks/Week Comments Yes 8.3 (1 standard drink = 0.6 oz p ure alcohol) moderate Comments Unknown Sex and Gender Information Value Date Recorded Sex Assigned at Not on file Legal Sex Female 7:58 PM CDT Gender Identity Not on file Sexual Orientation Not on file Last Filed Vital Signs Vital Sign Reading Time Taken Comments Blood Pressure 146/66 02/19/2024 11:57 AM CDT Pulse 70 02/19/2024 11:57 AM CDT Temperature - - Respiratory Rate - - Oxygen Saturation - - Inhaled Oxygen Concentration - - Weight 70.8 kg (156 lb) 02/19/2024 11:57 AM CDT Height 162.6 cm (5' 4 ) 02/19/2024 11:57 AM CDT Body Mass Index 26.78 02/19/2024 11:57 AM CDT Plan of Treatment Upcoming Encounters Date Type Department Care Team (Late st Contact Info) Description 02/17/2025 9:30 AM CDT [facility] [address] [place] [address] Prabhakar Lin MD [address] [address] Health Maintenance Due Date Last Done Comments Colorectal Cancer Screening Colonoscopy (10 Years) 1955 Hepatitis C 02/05/1974 Annual Medicare Wellness Visit 02/05/2021 Dexa Scan (General) 02/05/2021 COVID-19 Vaccine ( season) 2024 10/01/2023, 01/24/2023, 01/16/2022, Additional history exists Mammogram Screening 11/24/2025 11/25/2023, 11/23/2022, 11/20/2021, Additional history exists DTaP, Tdap and Td Vaccines (2 - Td or Tdap) 12/19/2025 12/20/2015 Zoster Vaccines Completed 03/19/2019, 11/26/2018 Pneumococcal Vaccine: 50+ Years Completed 04/02/2022, 03/07/2021 RSV Immunization or 60+ Years Completed 03/20/2023 Meningococcal B Vaccine Aged Out No l onger eligible based on patient's age to complete this topic Meningococcal Vaccine Aged Out No august farhana eligible based on patient's age to complete this topic RSV Immunizations Under 20 Months Aged Out No longer eligible based on patient's age to complete this topic Insurance MEDICARE MEDICARE Member Subscriber Plan / Payer (Ef fective 2021-) Name:Michelle Sevilla Relation to Subscriber:Self Name:DiMichelle cardoso Payer ID:Not on file Group ID:Not on file Type:Indemnity Address: ATTN CLAIMS [address] [place] [address] [place] [address] Care Teams Manufacturing Technician Relationship Specialty Start Date End Date Cintia Grullon, DEMONSTRATOR SEWING TECHNIQUES-BC [address] [place] [address] PCP - General NURSE PRACTITIONER 01/29/18
== END 2024-08-25 11:31 | disposition home or self-care (01) ==
PROVIDERS: PCP Nurse Practitioner; Visit Provider Nurse Practitioner
DX: Z78.0 Asymptomatic menopausal state (principal)
CPT/HCPCS: 77080

== ENCOUNTER 2024-10-06 11:33 | Outpatient (CLI) | payer MEDICARE, BC, SELFPAY ==
--- NOTE | ~2024-10-06 | XR_ITS ---
XR ankle RT 2V 10/06/2024 11:43 Indication: Right ankle pain after injury Procedure: 4 views right ankle Comparison: No prior studies for comparison. Findings: There is an age-indeterminate avulsion fracture distal tip of the fibula. Ankle mortise int act. No other fractures identified. There is degenerative calcaneal enthesophyte. Impression: 1: Age-indeterminate avulsion fracture distal tip of the fibula. No significant soft tissue swelling. Correlate for point tenderness. Reviewed, dictated and finalized at location A. Impression: 1: Age-indeterminate avulsion fracture distal tip of the fibula. No significant soft tissue swelling. Correlate for point tenderness.
== END 2024-10-06 11:34 | disposition home or self-care (01) ==
LOC: GOSHIMG 11:33
PROVIDERS: PCP Nurse Practitioner; Visit Provider Nurse Practitioner
DX: S82.491A Other fracture of shaft of right fibula, initial encounter for closed fracture (principal); X58.XXXA Exposure to other specified factors, initial encounter
CPT/HCPCS: 73600

== ENCOUNTER 2025-01-13 14:15 | Outpatient (CLI) | payer MEDICARE, BC, SELFPAY ==
--- NOTE | ~2025-01-13 | XR_ITS ---
EXAMINATION: [id number], 01/13/2025 14:24 CDT HISTORY: Pleurodynia stabbing pain in chest x 3 days COMPARISON: No comparisons available. Findings: No acute fracture or malalignment. No significant degenerative changes. Soft tissues unremarkable. Impression: No acute fracture or malalignment. Reviewed, dictated and finalized at location A. Impression: No acute fracture or malalignment.
== END 2025-01-13 14:16 | disposition home or self-care (01) ==
LOC: GOSHIMG 14:16
PROVIDERS: PCP Nurse Practitioner; Visit Provider Nurse Practitioner
DX: R07.81 Pleurodynia (principal)
CPT/HCPCS: 71101

== ENCOUNTER 2025-02-08 09:27 | Outpatient (CLI) | payer MEDICARE, BC, SELFPAY ==
--- NOTE | ~2025-02-08 | US_ITS ---
Clinical History: Y Examination: US carotid duplex BI Comparison: 02/10/2024 Technique: Grayscale, color, duplex/spectral Doppler sonography carotid and vertebral arteries. Distal CCA and Peak ICA systolic velocities provided. Society of Radiologists in Ultrasound (SRU) consensus criteria utilized, indirectly assessing stenosis by velocities. Findings: Scattered plaque Right side: CCA - 66 cm/sec. ICA - 92 cm/sec. ICA/CCA - 1.4 Left Side: CCA - 60 cm/sec. ICA - 80 cm/sec. ICA/CCA - 1.3 Normal antegrade flow measured bilateral vertebral arteries. IMPRESSION: 1. No hemodynamically significant ICA stenosis (i.e., if any stenosis, less than 50%). 2. Normal bilateral antegrade vertebral artery flow. Stenosis measured by Society of Radiologists in Ultrasound (SRU) criteria. Reviewed, dictated and finalized at location R. IMPRESSION: 1. No hemodynamically significant ICA stenosis (i.e., if any stenosis, less th an 50%). 2. Normal bilateral antegrade vertebral artery flow. Stenosis measured by Society of Radiologists in Ultrasound (SRU) criteria.
--- OUTSIDE RECORDS SUMMARY | 2025-02-08 10:19 | XMS_ITS | Clinical Summary ---
Author Organization [facility] Address [address] [place] [address] Care Team Providers Care Finishing Range Feeder Name Role Phone Cintia Grullon BASEBALL PLAYER Primary Care Provider [phone] Encounters Date Type Department Care Team Description 01/19/2025 External Device Data [facility] ABSTRACTION Provider, Abstract 01/12/2025 External Device Data [facility] ABSTRACTION Provider, Abstract 12/09/2024 External Device Data [facility] ABSTRACTION Provider, Abstract 12/08/2024 External Device Data ST[facility] ABSTRACTION Provider, Abstract 11/25/2024 10:13 AM CDT - 11/25/2024 11:59 PM CDT Hospital Encounter [facility] [address] [facility] [place] [address] Isi Molina MD Discharge Disposition: Home or Self Care 11/18/2024 External Device Data STL ABSTRACTION Provider, Abstract 11/18/2024 External Device Data ST[facility] ABSTRACTION Provider, Abstract 11/17/2024 External Device Data ST[facility] ABSTRACTION Provider, Abstract from Last 3 Months Social History Tobacco Use Types Packs/Day Years Used Date Smoking Tobacco: Never Assessed Comments Unknown Sex and Gender Information Value Date Recorded Sex Assigned at Not on file Legal Sex Female 11:28 PM CDT Gender Identity Not on file Sexual Orientation Not on file Plan of Treatment Health Maintenance Due Date Last Done Comments Pre-Diabetes and Diabetes Screening 1955 DTAP/TDAP/TD VACCINES (1 - Tdap) 02/05/1975 FIT-DNA Q 3 years 02/05/2001 FIT/FOBT Q 1 year 02/05/2001 Flex Sig/CT Colonography Q 5 years 02/05/2001 ZOSTER VACCINE (1 of 2) 02/05/2006 OSTEOPOROSIS SCREENING 02/05/2021 INFLUENZA VACCINE (#1) 2024 BREAST CANCER SCREENING 11/25/2025 11/26/19 25, 11/25/2023, 11/23/2022, Additional history exists RSV VACCINE (60+ or ) (1 - 1-dose 75+ series) 02/05/2031 COLORECTAL SCREENING 05/06/2032 05/06/2022 Colorectal Cancer Screening 05/06/2032 PNEUMOCOCCAL VACCINE 50+ YEARS Completed 04/02/2022 , 03/07/2022 Procedures Procedure Name Priority Date/Time Associated Diagnosis Comments MAMMO 3D KEZIA SCREEN BILAT W OR WO CAD Routine 11/25/2024 10:29 AM CDT Visit for screening mammogram from Last 3 Months Results * MAMMO 3D KEZIA SCREEN BILAT W OR WO CAD (11/25/2024 10:29 AM CDT) Anatomical Region Laterality Modality Breast Bilateral Mammography 11/25/2024 10:3 0 AM CDT Impressions 11/25/2024 11:02 AM CDT IMPRESSION: No mammographic evidence of malignancy. OVERALL FINAL ASSESSMENT: BI-RADS CATEGORY 1: Negative. RECOMMENDATIONS: Annual screening. DICTATION LOCATION: [facility] Narrative 11/25/2024 11:02 AM CDT MAMMOGRAMS SCREENING DIGITAL BILATERAL WITH CAD AND 3D TOMOSYNTHESIS DATE: 11/25/2024 10:29 AM PRIOR: November 25, 2023 HISTORY: Screening. TECHNIQUE: Bilateral digital craniocaudad (CC) and mediolateral oblique (MLO) views. 3D Tomosynthesis. CAD. BREAST COMPOSITION: There are scattered areas of fibroglandular density. FINDINGS: No suspicious finding of either breast. us Isi Molina MD MAMMO ORDERABLES Final Re sult from Last 3 Months Insurance BCBS FEDERAL MEDICARE PART A AND B Care Teams Finishing Range Feeder Relationship Specialty Start Date End Date Cintia Grullon FNP [address] [address] PCP - General Nurse Practitioner Family 11/16/19
--- OUTSIDE RECORDS SUMMARY | 2025-02-08 10:19 | XMS_ITS | Clinical Summary ---
Author Organization [facility] Address [address] [place] [address] Care Team Providers Care Sales Planning Manager Name Role Phone No, Physician Primary Care Provider [phone] Allergies Active Allergy Reactions Criticality Noted Date [...] on file Legal Sex Female 8:13 AM WAYS OPERATOR Gender Identity Not on file Sexual Orientation [...] 11/25/2023, 11/23/2022, Additional history exists Influenza Vaccine (#1) 2025 , 02/11/2019, 02/03/2019, Additional history exists DTaP/Tdap/Td Vaccine (2 - Td or Tdap) 12/19/2025 12/20/2015 Zoster Vaccine Completed 03/19/2019, 11/26/2018 Insurance MEDICARE [facility] Care Teams Sales Planning Manager Relationship Specialty Start Date End Date No, Physician PCP - General 08/20/22
== END 2025-02-08 09:28 | disposition home or self-care (01) ==
PROVIDERS: PCP Nurse Practitioner; Visit Provider Surgery Vascular Surgery
DX: I65.23 Occlusion and stenosis of bilateral carotid arteries (principal)
CPT/HCPCS: 93880

== ENCOUNTER 2025-05-04 08:02 | Outpatient (CLI) | payer MEDICARE, BC, SELFPAY ==
--- OUTSIDE RECORDS SUMMARY | 2025-05-04 08:07 | XMS_ITS | Clinical Summary ---
Author Organization [facility] Address [address] [place] [address] Care Team Providers Care Analytical Technician Name Role Phone Cintia Grullon [facility] Primary Care Provider + Allergies Active Allergy Reactions Criticality Noted Date Comments Chlordiazepoxide Rash Low 01/20/2018 IBS med- rash and very tired Ciprofloxacin Rash Low 01/20/2018 Medications ESTRACE VAGINAL 0.1 MG/GM vaginal cream INSERT 1 APPLICATORFUL VAGINALLY TWICE WEEKLY UTD 2 8 Active citalopram 10 MG tablet Take 1 tablet (10 mg total) by mouth daily. 60 tablet 8 Active Multiple Vitamins-[place] als (CENTRUM SILVER) Tab Take 1 tablet [...] Carotid stenosis, asymptomatic, left 01/30/2018 Hypercholesterolemia 01/30/2018 Encounters Date Type Department Care Team Description 02/22/2025 [facility] [address] [address] Prabhakar Lin MD Results 02/07/2025 Scan [facility], [address] [address] Scanned, Doc Pccl from Last 3 Months Family History Medical History Relation Comments diverticulosis [...] 11:57 AM CDT Height 162.6 cm (5' 4) 02/19/2024 11:57 AM CDT Body Mass Index 26.78 02/19/2024 11:57 AM CDT Plan of Treatment Health Maintenance Due Date Last Done Comments Colorectal Cancer Screening Colonoscopy (10 Years) 1955 Hepatitis C 02/05/1974 Annual Medicare Wellness Visit 02/05/2021 Dexa Scan (General) 02/05/2021 COVID-19 Vaccine ( season) 2025 10/01/2023, 01/24/2023, 01/16/2022, Additional history exists Influenza Adult (#1) 2025 02/24/2020, 02/11/2019, 02/03/2019, Additional history exists Mammogram Screening 11/24/2025 11/25/2023, 11/23/2022, 11/20/2021, Additional history exists DTaP, Tdap and Td Vaccines (2 - Td or Tdap) 12/19/2025 12/20/2015 Zoster Vaccines Completed 03/19/2019, 11/26/2018 Pneumococcal Vaccine: 50+ Years Completed 04/02/2022, 03/07/2021 RSV Immunization or 60+ Years Completed 03/20/2023 Hepatitis A Vaccines Aged Out No long er eligible based on patient's age to complete this topic Meningococcal B Vaccine Aged Out No l onger eligible based on patient's age to complete this topic Meningococcal Vaccine Aged Out No august farhana eligible based on patient's age to complete this topic RSV Immunizations Under 20 Months Aged Out No longer eligible based on patient's age to complete this topic Procedures Procedure Name Priority Date/Time Associated Diagnosis Comments VASCULAR LAB GENERIC (SCAN ORDER) Routine 02/08/2025 from Last 3 Months Results * VASCULAR LAB (02/08/2025) us Doc Pccl Scanned SCANNING Edited Result - Final HS ONBASE from Last 3 Months Insurance [facility] MEDICARE MEDICARE [facility] Care Teams Analytical Technician Relationship Specialty Start Date End Date Cintia Grullon, BRAZING MACHINE TENDER-BC [address] [place] [address] PCP - General NURSE PRACTITIONER 01/29/18
--- OUTSIDE RECORDS SUMMARY | 2025-05-04 08:07 | XMS_ITS | Clinical Summary ---
Author Organization [facility] Address [address] [place] [address] Care Team Providers Care Edge Inker Name Role Phone No, Physician Primary Care Provider [phone] Allergies Active Allergy Reactions Criticality Noted Date [...] on file Legal Sex Female 8:13 AM BOILER ENGINEER Gender Identity Not on file Sexual Orientation [...] Zoster Vaccine Completed 03/19/2019, 11/26/2018 Insurance MEDICARE [facility] Care Teams Edge Inker Relationship Specialty Start Date End Date No, Physician PCP - General 08/20/22
--- OUTSIDE RECORDS SUMMARY | 2025-05-04 08:07 | XMS_ITS | Clinical Summary ---
Author Organization [facility] Address [address] [place] [address] Care Team Providers Care Software Sales Consultant Name Role Phone Cintia Grullon ANDROID FRAMEWORK DEVELOPER Primary Care Provider [phone] Encounters Date Type Department Care Team Description 04/27/2025 External Device Data [facility] ABSTRACTION Provider, Abstract 04/27/2025 External Device Data [facility] ABSTRACTION Provider, Abstract 03/23/2025 External Device Data [facility] ABSTRACTION Provider, Abstract 03/02/2025 External Device Data [facility] ABSTRACTION Provider, Abstract 02/24/2025 External Device Data [facility] ABSTRACTION Provider, Abstract 02/23/2025 External Device Data ST[facility] ABSTRACTION Provider, Abstract [...] 1: Negative. RECOMMENDATIONS: Annual screening. DICTATION LOCATION: [facility] Narrative 11/25/2024 11:02 AM CDT MAMMOGRAMS SCREENING [...] Most Recently Relevant to Health Maintenance Insurance [facility] FEDERAL MEDICARE PART A AND B Care Teams Software Sales Consultant Relationship Specialty Start Date End Date Cintia Grullon FNP [address] [address] PCP - General Nurse Practitioner Family 11/16/19
== END 2025-05-04 08:03 | disposition home or self-care (01) ==
PROVIDERS: PCP Nurse Practitioner
DX: Z01.419 Encounter for gynecological examination (general) (routine) without abnormal findings (principal); E13.21 Other specified diabetes mellitus with diabetic nephropathy
CPT/HCPCS: 36415; 82306